=== PATIENT | male | born 1945 | race Two or more races ===

== ENCOUNTER 2017-04-15 08:20 | Inpatient (IN) | payer MEDICARE ==
[2017-04-15] MEDS ORDERED: Ondansetron INJ* 2 MG/ML VIAL IV PRN (08:24)
[2017-04-15] MEDS ORDERED: HYDROmorphone INJ* 2 MG/ML CARPUJECT SYRINGE IV PRN (08:24)
[2017-04-15 09:55] LABS: ABS Basophils 0 10^3/ul (0-0.2); ABS Eosinophils 0.2 10^3/ul (0-0.6); ABS Lymphocytes 0.8 10^3/ul (1.0-4.8); ABS Monocytes 0.7 10^3/ul (0-0.8); ABS Neutrophils 3.2 10^3/ul (1.5-7.7); ABS Nucleated RBC 0 10^3/ul; Eosinophil % 3.4 % (0-6); Hematocrit 46 % (42-52); Lymphocyte % 16.1 % (25-47); Mean Corpuscular HGB Conc 35 g/dl (31-36); Mean Corpuscular Hemoglobin 33 pg (27-31); Mean Corpuscular Volume 95 fL (80-94); Mean Platelet Volume 10 um3 (7.4-10.4); Nucleated Red Blood Cells % 0; Platelet Count 169 10^3/ul (150-450); Red Cell Distribution Width 14 % (10.5-15); White Blood Count 4.8 10^3/ul (3.5-10.8)
[2017-04-15 10:06] LABS: EGFR Non-African American 89.4 (>60)
--- NOTE | 2017-04-15 10:50 | PN ---
Progress Note - Progress Note Date of Service: 04/15/17 Note: H&P dictated Imp/Plan: Abdominal pain with jaundice and elevated Bilirubin CT scan today for further evaluation Plan for ERCP tomorrow
[2017-04-15] MEDS ORDERED: Iohexol 300* (CONTRAST) 10 ML SDV IV ONE (11:08)
--- NOTE | 2017-04-15 12:13 | RAD ---
INDICATION: Cholecystitis. Elevated bilirubin COMPARISON: Gallbladder sonogram April 13, 2017 TECHNIQUE: Axial source images were obtained from the hemidiaphragms to the symphysis pubis following administration of oral and intravenous contrast. 139 mL Omnipaque 300 was utilized. Coronal and sagittal reconstructed images were acquired. Lung bases: The lung bases are clear. Liver: The liver is normal in size. There is a 1.2 cm hypervascular lesion in the medial segment of the left hepatic lobe. There is no ductal dilatation.. Initially suggest ultrasonographic evaluation. There is mild hepatic steatosis. Gallbladder: There are numerous gallstones. There is no thickening of the gallbladder wall or pericholecystic fluid. There is no CT evidence of choledocholithiasis. Spleen: The spleen is normal in size. There are no masses. Pancreas: There is no focal pancreatic mass or ductal dilatation. Adrenal glands: There is no evidence of adrenal mass. Kidneys: The kidneys are normal in size and position. There are prompt nephrograms and there is prompt excretion bilaterally. There are bilateral parapelvic cysts. There is no evidence of nephrolithiasis. Adenopathy: There is no evidence of adenopathy by size criteria. Fluid collections: There are no free or localized fluid collections. Vessels:There are no significant atherosclerotic changes involving the aorta. There is no focal aneurysm. The iliac vessels are normal in caliber. There is no IVC filter. GI tract: There are no acute CT bowel findings. There is no obstruction. The stomach and small bowel appear normal. The lower GI tract is normal. The cecum, ileocecal valve, and terminal ileum appear normal. The appendix is visualized and appear normal. Pelvic organs: Anatomy not well evaluated due to bilateral hip arthroplasty and pelvic surgery. Bladder: Limited evaluation due to beam hardening artifact from postsurgical changes. Abdominal and pelvic soft tissues: The extraperitoneal abdominal and pelvic soft tissues appear normal.. Osseous structures: There are remote pelvic fractures with with peak fixation. There is bilateral hip arthroplasty. This produces significant beam hardening artifact. There is prior decompressive spinal surgery. Other: None IMPRESSION: CHOLELITHIASIS. NO DUCTAL DILATATION OR CT EVIDENCE OF CHOLEDOCHOLITHIASIS. POSTOPERATIVE CHANGE ABOUT THE LUMBAR SPINE, PELVIS, AND BOTH HIPS.
--- NOTE | 2017-04-15 18:04 | HP ---
ADMISSION HISTORY AND PHYSICAL: DATE OF ADMISSION: 04/15/17 PATIENT OF: Dr. Corey Guzman. * (DICTATED BY RYAN PIMENTEL) CHIEF COMPLAINT: Epigastric pain and gallstones. HISTORY OF PRESENT ILLNESS: Mr. Kent is a pleasant 71-year-old gentleman, who was seen at the [facility] office 2 days ago with complaints of epigastric pain. The patient was initially seen by his primary care physician, Dr. Carmona, in [place] for evaluation of gallstone that was noted on ultrasound. The patient reports back then, he noticed some jaundice and the ultrasound showed evidence of gallstones for which he was referred to our surgical office. He states several weeks of intermittent epigastric pain and right upper quadrant pain that radiates to the back and lasts on average 8 to 10 hours per episode. His pain eventually resolved; however, it started to happen again with no associated other symptoms. He denies any nausea, vomiting, changes in the color of stool or urine. He was seen at our surgical office and was noted to have elevated bilirubin on his laboratory workup for which decision was made for him to be directly admitted for further evaluation of possible choledocholithiasis and to arrange for ERCP. PAST MEDICAL HISTORY: Significant for chronic back pain, hypertension. PAST SURGICAL HISTORY: Significant for total hip replacements bilaterally as well as a left ankle fracture, status post ORIF of the ankle. He also had melanoma excised in the remote past. CURRENT MEDICATIONS: His medications at home include: 1. Cosopt eye drops, 1 drop in each eye once daily. 2. Gabapentin 400 mg p.o. b.i.d. 3. Lumigan ophthalmic solution 1 drop in both eyes once daily. 4. Multivitamin 1 tablet daily. 5. Omeprazole 20 mg p.o. daily. 6. Valsartan 80 mg p.o. daily. 7. Vitamin D supplement 1000 units p.o. daily. ALLERGIES: He has no known drug allergies. FAMILY HISTORY: He denies any family history of colorectal malignancies. SOCIAL HISTORY: The patient is . Lives with his . 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 He has never smoked and he occasionally consumes alcohol. REVIEW OF SYSTEMS: See HPI, otherwise negative. PHYSICAL EXAMINATION GENERAL: He is a pleasant, healthy-appearing, upper middle-aged gentleman in no acute distress or discomfort at the time of admission. VITAL SIGNS: His vitals revealed temperature of 98 degrees, pulse of 56, respirations of 16, blood pressure of 126/75, and O2 sat of 98% on room air. HEENT: Head is normocephalic, atraumatic. Sclerae slightly icteric. EOMs intact. PERRLA. Oropharynx is pink and moist. NECK: Supple. Trachea midline. No cervical adenopathy, thyromegaly, or JVD. LUNGS: Clear to auscultation bilaterally. HEART: Regular rate and rhythm. Normal S1 and S2 without rubs, murmurs, or gallops. BACK: With normal curvature. No CVA tenderness. ABDOMEN: Soft, round, nontender, and nondistended. There is no guarding, rigidity, or rebound tenderness noted. No hernias, masses, or hepatosplenomegaly. RECTAL: Exam deferred at this time. EXTREMITIES: Without cyanosis, clubbing, or edema. NEUROLOGIC: Grossly intact. LABORATORY WORKUP: CBC with white count of 4800, hemoglobin 16, hematocrit of 46, and platelets of 169. His chemistry showed sodium of 138, potassium of 4.3 , chloride 107, BUN of 14, creatinine of 0.8, glucose of 100. His LFTs with total bilirubin of 4.1 and alkaline phosphatase of 269. His lipase is 20. ACCESSORY DIAGNOSTIC DATA: The patient is scheduled for a CT scan of the abdomen and pelvis with contrast and those results are pending at this time. IMPRESSION: A 71-year-old gentleman with intermittent epigastric and right upper quadrant pain and known history of cholelithiasis with recent episodes of pain and jaundice. PLAN: The patient is scheduled for ERCP to be done tomorrow by Dr. Curran. We discussed with him the rationale, indications, risks, and benefits involved. Depending on his CT scan findings and the ERCP tomorrow, he will likely need a cholecystectomy to be done during this admission or sometime in the near future. He understands and wishes to proceed as outlined. RYAN PIMENTEL [id number]/[facility] #: [id number] [facility] RIVERSIDE HOSPITALCedrick
[2017-04-15] MEDS: Gabapentin CAP(*) 400 MG PO SCH (20:37)
--- NOTE | 2017-04-15 21:24 | CONS ---
GASTROENTEROLOGY CONSULT: DATE: 04/15/17 CONSULTING PHYSICIANS: Corey Guzman, Monse Carmona. 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 Exactly a week ago, he developed pain around midnight. It was in the upper abdomen, centrally located, went through to the back. There was some nausea. It tended to fade away over a few hours and then was gone for day. It came back severely Wednesday night, 04/11/17. Around 2 am on Wednesday morning, it disappeared, but there was a low level pain that continued until the middle of the day yesterday. His urine became very dark. There was no fever. Given the bilirubin rising from 4 to 9, he was admitted. He states he has similar pain to this about 25 or 30 years ago just once. Because of voice changes, he was placed on omeprazole 4 for 5 years ago and voice changes disappeared. In [place], ear, nose and throat doctor thought the gabapentin had spurred up reflux. PAST MEDICAL HISTORY: 1. Hypertension - started on BP meds a couple of years ago with no complications. 2. Chronic musculoskeletal pain - due to an accident several years ago. 3. History of deviated septum surgery. 4. History of tonsillectomy. 5. Back melanoma in 1986 - . 6. 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 REVIEW OF SYSTEMS: No history of TIA, stroke, seizure, peripheral neuropathy, asthma, TB, hemoptysis. There is no history of blood disorder. He has never had jaundice before. He does have some orthopedic metal objects implanted. He also has an anti-embolism device in place. PHYSICAL EXAMINATION: He is a robustly build, tall, middle-aged man, in no distress. HEENT: Exam shows minimal icterus. The eyes are symmetric. There is no adenopathy. His lungs are clear. Heart sounds are normal. The abdomen is mildly prominent, soft and nontender. Rectal: Deferred. Extremity: Show no edema. Neurologic is nonfocal with normal mentation. Cranial Nerves: Movement of all 4 extremities. LABORATORY DATA: Bilirubin 4.1, alkaline phosphatase down about [address] scan - coronal images show a fairly narrow common duct with the question of a beaded appearance. Ultrasound - sludge and small stones with a non-dilated duct. IMPRESSION: This 71-year-old man with gallbladder sludge and calin has a history early diagnostic for passing stones into the common duct. Mostly likely , he passed one successfully. An MRCP and further labs will help to find whether the stone may have bounced back into the duct or there are others in the common duct still needing to pass. He ultimately needs cholecystectomy. He may need an ERCP. This was discussed in detail with him assisted by diagram. [id number]/[facility] #: [id number] JUAN CARLOS
[2017-04-15] MEDS: PTO:Bimatoprost 0.01% OPHTH (NF) 2.5 ML BTL BOTH EYES SCH (23:36)
[2017-04-15] MEDS: PTO:Dorzolamide/Timolol OPTH (NF) 10 ML BOT BOTH EYES SCH (23:36)
[2017-04-16 06:37] LABS: EGFR Non-African American 91.9 (>60)
[2017-04-16] MEDS: PTO:Bimatoprost 0.01% OPHTH (NF) 2.5 ML BTL BOTH EYES SCH ×3 (08:32→19:33)
[2017-04-16] MEDS: Gabapentin CAP(*) 400 MG PO SCH ×2 (08:34→19:32)
[2017-04-16] MEDS: Omeprazole CAP* 20 MG PO SCH (08:34)
[2017-04-16] MEDS: Valsartan TAB* 80 MG PO SCH (08:34)
--- NOTE | 2017-04-16 09:08 | PN ---
Progress Note - Progress Note Date of Service: 04/16/17 Note: S: Wendel good yesterday. Today: feels a little "tight" in the upper abd, and a bit of nausea (no vomiting). Tolerated diet well yesterday. Had BM this a.m. O: Vital Signs - 8 hr 04/16/17 04/16/17 04/16/17 04:19 04:45 07:20 Temperature 97.9 F 98.2 F Pulse Rate 50 51 Respiratory 16 17 Rate Blood Pressure 112/67 135/80 (mmHg) O2 Sat by Pulse 95 95 96 Oximetry 04/16/17 08:34 Temperature Pulse Rate Respiratory 18 Rate Blood Pressure (mmHg) O2 Sat by Pulse Oximetry Intake and Output Last 24 Hours 04/14/17 04/15/17 04/16/17 04/17/17 06:59 06:59 06:59 06:59 Intake Total 3036 0 Output Total 2024 200 Balance 1011 -200 Weight 230 lb Intake: IV Fluids 1935 LR 1935 Oral 1100 0 Output: Urine 2024 200 Other: Date of Last Bowel 04/15/17 Movement Estimated Stool Amount Medium Gen: NAD Heart: reg Lungs: clear Abd: mildly distended; +BS; soft; no sig tenderness Lab: Laboratory Tests 04/16/17 05:56 Total Bilirubin 2.20 H D AST 49 H ALT 257 H Alkaline Phosphatase 215 H A: choledocholithais, with overall clinical improvement P: MRCP today, followed by ERCP if add'l CBD stones; tentatively whit for lap alize on Mon (d/c home between if clinically well?)
--- NOTE | 2017-04-16 11:10 | RAD ---
Indication: Elevated bilirubin. Axial T2 fat sat, coronal T2, 3-D MRCP images were obtained. The left and right hepatic ducts are otherwise unremarkable. The common bile duct and common hepatic ducts demonstrates no evidence of stenosis. There is filling defect in the gallbladder consistent with multiple gallstones. No evidence of common duct stone is noted. The pancreatic duct is within normal limits. In the left lobe of liver there appears to be a high signal lesion consistent with hemangioma and is appears to be ring-enhancing on the CT. IMPRESSION: Multiple filling defects in the gallbladder consistent with gallstones. No evidence of filling defect is noted in the common hepatic or common bile duct. There appears to be a left lobe hepatic hemangioma.
[2017-04-16] MEDS: PTO:Dorzolamide/Timolol OPTH (NF) 10 ML BOT BOTH EYES SCH ×2 (17:50→19:34)
[2017-04-17 05:29] LABS: ABS Basophils 0 10^3/ul (0-0.2); ABS Eosinophils 0.1 10^3/ul (0-0.6); ABS Lymphocytes 0.9 10^3/ul (1.0-4.8); ABS Monocytes 0.7 10^3/ul (0-0.8); ABS Neutrophils 3.4 10^3/ul (1.5-7.7); ABS Nucleated RBC 0 10^3/ul; Eosinophil % 2.7 % (0-6); Hematocrit 44 % (42-52); Mean Corpuscular HGB Conc 34 g/dl (31-36); Mean Corpuscular Hemoglobin 33 pg (27-31); Mean Corpuscular Volume 95 fL (80-94); Mean Platelet Volume 9 um3 (7.4-10.4); Nucleated Red Blood Cells % 0.1; Platelet Count 157 10^3/ul (150-450); Red Blood Count 4.63 10^6/ul (4.0-5.4); Red Cell Distribution Width 13 % (10.5-15); White Blood Count 5.2 10^3/ul (3.5-10.8)
[2017-04-17] MEDS: Omeprazole CAP* 20 MG PO SCH (08:03)
[2017-04-17] MEDS: Gabapentin CAP(*) 400 MG PO SCH ×2 (08:03→19:47)
[2017-04-17] MEDS: PTO:Bimatoprost 0.01% OPHTH (NF) 2.5 ML BTL BOTH EYES SCH ×2 (08:06→19:47)
[2017-04-17] MEDS: Valsartan TAB* 80 MG PO SCH (08:06)
[2017-04-17] MEDS: PTO:Dorzolamide/Timolol OPTH (NF) 10 ML BOT BOTH EYES SCH ×2 (08:07→19:47)
--- NOTE | 2017-04-17 09:10 | PN ---
Progress Note - Progress Note Date of Service: 04/17/17 SOAP: Subjective: Feels well today-no abdominal pain and has appetite Ambulating without difficulty Objective: Temp Pulse Resp BP Pulse Ox 97.6 F 50 18 131/83 96 04/17/17 07:47 04/17/17 07:47 04/17/17 08:17 04/17/17 07:47 04/17/17 07:47 Intake & Output 04/15/17 04/16/17 04/17/17 04/18/17 06:59 06:59 06:59 06:59 Intake Total 3036 2178 Output Total 2024 1824 Balance 1011 353 Weight 230 lb 230 lb Intake: IV Fluids 1935 1000 LR 1936 1000 IVPB 698 LR 698 Oral 1100 480 Output: Urine 2024 1824 Other: Estimated Void Medium Date of Last Bowel 04/15/17 Movement Estimated Stool Amount Medium # Voids 1 PEX: Comfortable Lungs are clear Abd is soft and non-distended. Bowel sounds are present. There is no tenderness Ext without edema Laboratory Results - last 24 hr 04/17/17 04/17/17 05:03 05:03 WBC 5.2 RBC 4.63 Hgb 15.0 Hct 44 MCV 95 H MCH 33 H MCHC 34 RDW 13 Plt Count 157 MPV 9 Neut % (Auto) 66.1 Lymph % (Auto) 18.0 L [place] % (Auto) 12.8 H Eos % (Auto) 2.7 Baso % (Auto) 0.4 Absolute Neuts (auto) 3.4 Absolute Lymphs (auto) 0.9 L Absolute Monos (auto) 0.7 Absolute Eos (auto) 0.1 Absolute Basos (auto) 0 Absolute Nucleated RBC 0 Nucleated RBC % 0.1 Total Bilirubin 2.50 H Direct Bilirubin 0.90 H Indirect Bilirubin 1.6 H AST 47 H ALT 210 H Alkaline Phosphatase 168 H Total Protein 6.0 L Albumin 3.9 Globulin 2.1 Albumin/Globulin Ratio 1.9 Assessment: Jaundice--presumed common duct stone that has passed. MRCP yesterday normal without evidence of bile duct stones. Bilirubin much improved although slightly up this morning, but higher indirect component. No pain Cholelithiasis-no signs of cholecystitis Plan: I discussed with Dr. Curran yesterday-we do not feel ERCP indicated at this time but I will wait for him to review labs this morning. Also discussed plan with patient and his . He is on OR schedule Wednesday for lap sai Will keep on clear liquids if no ERCP and observe in hospital.
[2017-04-18] MEDS: PTO:Bimatoprost 0.01% OPHTH (NF) 2.5 ML BTL BOTH EYES SCH ×2 (07:59→20:54)
[2017-04-18] MEDS: Omeprazole CAP* 20 MG PO SCH (08:20)
[2017-04-18] MEDS: Valsartan TAB* 80 MG PO SCH (08:20)
[2017-04-18] MEDS: Gabapentin CAP(*) 400 MG PO SCH ×2 (08:20→17:49)
--- NOTE | 2017-04-18 10:03 | PN ---
Progress Note - Progress Note Date of Service: 04/18/17 SOAP: Subjective: Doing well without pain and tolerating liquids Had a loose BM this morning. Ambulating in halls Objective: Temp Pulse Resp BP Pulse Ox 97.5 F 51 16 130/76 97 04/18/17 07:23 04/18/17 07:23 04/18/17 08:24 04/18/17 07:23 04/18/17 08:24 Intake & Output 04/16/17 04/17/17 04/18/17 04/19/17 06:59 06:59 06:59 06:59 Intake Total 3036 2178 3873 320 Output Total 2024 1825 3100 300 Balance 1011 353 773 20 Weight 230 lb 230 lb Intake: IV Fluids 1936 1000 983 LR 1936 1000 983 IVPB 698 LR 698 Oral 9511 839 1650 320 Output: Urine 2024 1824 3100 300 Other: Estimated Void Medium Date of Last Bowel 04/15/17 Movement Estimated Stool Amount Medium # Voids 1 PEX: Comfortable Lungs are clear Abd is soft and non-distended. There is no tenderness. Bowel sounds are present. Labs pending Assessment: Cholelithiasis with probable choledocholithiasis with probable passing of CBD stone HTN Plan: Plan lap choly tomorrow-discussed procedure with patient. Reviewed care yesterday with Dr. Curran. Check labs today
[2017-04-18] MEDS: Dorzolamide/Timolol OPTH (NF) 10 ML BOT BOTH EYES SCH ×2 (10:39→20:54)
--- NOTE | 2017-04-18 17:56 | RAD ---
INDICATION: Cholecystitis and elevated bilirubin COMPARISON: Most recent comparison chest x-rays dated December 11, 2008 TECHNIQUE: Single AP portable view of the chest was obtained. FINDINGS: Image quality is compromised due to the relative inferiority of a portable chest x-ray. The heart and mediastinum exhibit normal size and contour. The lungs are grossly clear. There is no evidence of a large pleural effusion. Visualized bones are normal for the patient's age. IMPRESSION: No radiographic evidence for acute cardiopulmonary abnormality on this portable chest x-ray.
--- NOTE | 2017-04-19 00:04 | CONS ---
CC: Dr. Guzman; Dr. Soto * CONSULTATION REPORT: DATE OF CONSULT: 04/18/17 REASON FOR MEDICAL CONSULT: Evaluation of comorbid medical conditions and perioperative risk stratification. HISTORY OF PRESENT ILLNESS: Mr. Kent is a 71-year-old male patient that presented in the outpatient setting to Dr. Guzman's office with complaints of abdominal discomfort, epigastric pain, was found to be jaundiced, ultimately was direct admitted for concerns of choledocholithiasis. MRCP was obtained. The patient's pain and LFTs improved. It is felt that he probably passed the stone on his own and it was felt that he was going to require a laparoscopic cholecystectomy, which the plan is to undergo today. Unfortunately though, an EKG was obtained today and there was concern for possible Q-waves in the anterior leads for possible old OH. In discussion with the patient, he says that he has not been having any chest pain that he can ever recall. He says that he does exercise about an hour and a half twice a week and he does do exercise bike for about 20 minutes after which he does not get shortness of breath or chest pain. He says he has not been having any chest pain here and he has no more abdominal pain. He says when he looks at himself in the mirror, he does not appear to be jaundiced. He denied having any recent fevers or chills. There has been no recent shortness of breath. There has been no vomiting since he has been here and he says he is feeling better. Because of his EKG changes, we were asked to evaluate in consult. PAST MEDICAL HISTORY: Significant for: 1. Hypertension. 2. Chronic back pain. 3. Melanoma. PAST SURGICAL HISTORY: He has had a bilateral total hip replacement. He has had a left ankle ORIF. He has had melanoma excision. He has had back surgeries , carpal tunnel surgery, and he has had rotator cuff repair. MEDICATIONS: Home meds include: 1. Valsartan 80 mcg daily. 2. Vitamin D 1000 units p.o. daily. 3. Omeprazole 20 mg daily. 4. Multivitamin 1 tablet daily. 5. Lumigan 1 drop both eyes b.i.d. 6. Gabapentin 400 mg p.o. b.i.d. 7. Cosopt 1 drop both eyes at bedtime. ALLERGIES TO MEDICATIONS: Include no known drug allergies. FAMILY HISTORY: His mother had a history of CVA. Father had heart disease in his 90s. SOCIAL HISTORY: He does not smoke, he does drink alcohol occasionally. Surrogate decision maker is his . REVIEW OF SYSTEMS: There is no documented fever. There is no significant weight change. There is no double vision. Denies having any ear discharge. There is no rhinorrhea, no sore throat, and no thyroid enlargement. Denied having any chest pain. There is no orthopnea, no nocturnal dyspnea. Again no dyspnea on exertion. No dysuria, no frequencies. There was abdominal pain prior to coming in; however, he has none now. No nausea, no vomiting, no dysuria, no frequency, no seizure, no loss of consciousness, no pruritus, no skin ulcerations. Review of 14 systems completed, all others negative. PHYSICAL EXAM: Vital Signs: Blood pressure 135/75, pulse 47, respirations 16, O2 sat 97%, and temperature 98.5. General: At this time, Mr. Kent is a 71- year-old male patient who appears to be well nourished and well developed. He is sitting in the hospital bed. He does not appear to be in any acute distress. HEENT: Head atraumatic and normocephalic. Eyes; EOMs intact. The sclerae now appears to be anicteric and not pale. Neck was supple. Throat: Oral mucosa appears to be moist. No oropharyngeal erythema. Heart sounds S1 and S2. Regular rate and rhythm. No murmurs, rubs, or gallops. Lungs: Clear to auscultation. No wheezes, rales, or rhonchi. Abdomen was soft, flat, and nontender. Bowel sounds were present. Extremities: Pulses were 2+ throughout. Moving all 4 extremities with 5/5 strength. Neurological: The patient is awake, alert and oriented x3. Tongue midline. Lamp Shade Assembler are equal. No gross focal deficits. The skin is intact. DIAGNOSTIC STUDIES/LAB DATA: Today WBC of 5.2, RBC of 4.63, hemoglobin 15.0, hematocrit of 44, and platelet count of 157,000. His total bili is 1.9, direct 0.7, indirect 1.2. AST 51, ALT 185, alk phos 166, again all trending down from when he was admitted. He did have an abdominal and pelvis CT obtained on admission. Impression: Cholelithiasis. No ductal dilatation or CT evidence of choledocholithiasis. Postoperative change about the lumbar spine, pelvis, and both hips. He did have an MRCP which showed multiple filling defects in the gallbladder consistent with gallstones. No evidence of filling defects is noted in the common hepatic or common bile duct. There appears to be a left lobe hepatic hemangioma. He had an EKG obtained today, the last one that he had was in 2008. Today's EKG does show a sinus bradycardia, rate of 51. He does have what appears to be old Q-wave in II, III, and aVF, but again they are subtle. Previous EKG does appear to be somewhat similar, particularly in the inferior leads this appears to be similar. Old medical records were reviewed. ASSESSMENT AND PLAN: Mr. Kent is a 71-year-old male patient. He comes in to our surgical services for abdominal pain, found to have choledocholithiasis, presumed to have passed on its own, now preparing to undergo a laparoscopic cholecystectomy tomorrow with Dr. Guzman. EKG was obtained, there are new changes noted in the anterior leads. We were asked to evaluate. Recommendations at this point are: 1. Choledocholithiasis. Again at this point, I defer the management to Dr. Guzman and his team, but in terms of his perioperative risk stratification and his EKG changes, the patient is not having any active cardiac symptoms. This could just simply be from lead placement. My plan would be to get a chest x-ray. He is able to walk up a flight of stairs and he is able to do 20 minutes of cardiac exercise at least twice a week with no chest pain and he has not had any chest pain or shortness of breath recently, so I think at this point he is medically optimized pending chest x-ray and we will try to get an old EKG from his primary when they open to see if this may be on his old EKGs, though we just do not have access to, but at this point, I do not think this should hold him up from surgery. 2. Hypertension. Continue meds prescribed. 3. Back pain. Continue his current medical regimen. 4. History of melanoma. Follow up with his primary. 5. DVT prophylaxis. Defer to the primary team. 6. Code status, full code. 7. Fluids, electrolytes, and nutrition. Defer to the primary team. TIME SPENT: On the consult 60 minutes, greater than half the time spent face-to - face with the patient obtaining my history and physical, other half of the time spent going over the plan of care with the patient, implementing the plan of care. I discussed the plan of care with my attending Dr. Castaneda, who is in agreement. TORSTEN PAIGE, ADAM [id number]/[facility] #: [id number] JUAN CARLOS
[2017-04-19] MEDS: Gabapentin CAP(*) 400 MG PO SCH ×2 (05:43→16:38)
[2017-04-19] MEDS: Valsartan TAB* 80 MG PO SCH (07:45)
[2017-04-19] MEDS: Omeprazole CAP* 20 MG PO SCH (07:45)
[2017-04-19] MEDS: Dorzolamide/Timolol OPTH (NF) 10 ML BOT BOTH EYES SCH ×3 (07:46→19:52)
--- NOTE | 2017-04-19 10:09 | PN ---
Progress Note - Progress Note Date of Service: 04/19/17 SOAP: Subjective: Doing well No abdominal pain Wants to eat Objective: Temp Pulse Resp BP Pulse Ox 98.4 F 52 16 145/93 97 04/19/17 07:34 04/19/17 07:34 04/19/17 07:58 04/19/17 07:34 04/19/17 07:34 Intake & Output 04/17/17 04/18/17 04/19/17 04/20/17 06:59 06:59 06:59 06:59 Intake Total 2178 3873 4485 Output Total 1825 3100 3400 Balance 132 099 3052 Weight 230 lb 230 lb Intake: IV Fluids 4753 572 9062 LR 4262 491 3888 IVPB 698 LR 698 Oral 480 2890 1565 Output: Urine 1825 3100 3400 Other: Estimated Void Medium Date of Last Bowel 04/18/17 Movement # Bowel Movements 2 Estimated Stool Amount Medium # Voids 1 PEX: Comfortable Lungs are clear Abd is soft and non-distended. No tenderness and bowel sounds are present and normoactive. Laboratory Results - last 24 hr 04/18/17 10:14 Total Bilirubin 1.90 H Direct Bilirubin 0.70 H Indirect Bilirubin 1.2 H AST 51 H ALT 185 H Alkaline Phosphatase 166 H Total Protein 6.1 L Albumin 4.0 Globulin 2.1 Albumin/Globulin Ratio 1.9 Assessment: Cholelithiasis-probable passed CBD stone and LFT's normalizing. MRCP with clear common bile duct. Plan: Laparoscopic cholecystectomy today--procedure discussed with patient and . Risks of, but not limited to, of bleeding, infection, abscess, possibility of open procedure, injury to retroperitoneal and peritoneal structures, common bile duct injury requiring surgical reconstruction, blood clots and pulmonary embolism were all explained. Recovery times and activity restrictions were discussed. Their questions were answered.
[2017-04-19] MEDS ORDERED: fentaNYL* 50 MCG/ML 2 ML VIAL (100 MCG VIAL) ONE ×3 (11:35→14:31)
[2017-04-19] MEDS ORDERED: Dexamethasone IV* 4 MG/ML 1 ML (4 MG) ONE (11:39)
[2017-04-19] MEDS ORDERED: Ondansetron INJ* 2 MG/ML VIAL ONE (11:39)
[2017-04-19] MEDS ORDERED: Propofol* 10 MG/ML 20 ML BTL IV PUSH ONE (11:39)
[2017-04-19] MEDS ORDERED: Atracurium* 10 MG/ML 10 ML VIAL ONE (11:40)
[2017-04-19] MEDS ORDERED: Atropine 1MG/ML INJ* 1 ML VIAL ONE (11:59)
[2017-04-19] MEDS ORDERED: Ketorolac INJ* 30 MG/ML 1 ML VIAL IV PRN (12:21)
[2017-04-19] MEDS ORDERED: DiMENhydriNATE IV* 50 MG/ML VIAL IV PUSH PRN (12:21)
[2017-04-19] MEDS ORDERED: Naloxone* 0.4 MG/ML 1 ML VIAL IV PRN (12:21)
[2017-04-19] MEDS ORDERED: Ketorolac INJ* 30 MG/ML 1 ML VIAL IV PUSH PRN (14:01)
--- NOTE | 2017-04-19 14:14 | OP ---
Operative Report - Blank - Operative Report Date of Operation: 04/19/17 Note: Pre-op: Chronic calculous cholecystitis Post-op: Same Procedure: Laparoscopic cholecystectomy Surgeon: Dr. Guzman Rodding Anode Worker: RYAN Lutz Anaesthesia: GETA EBL: Minimal Fluids: LR 2,000 cc Drains: AISLINN to self suction Catheter: None Specimen: Gallbladder Findings: See dictated op note
--- NOTE | 2017-04-19 14:21 | RAD ---
INDICATION: Intraoperative cholangiogram. COMPARISON: April 16, 2017 MR cholangiogram. April 15, 2017 CT. TECHNIQUE: 1 minute 19 seconds. fluoroscopy. FINDINGS: Spot images document a cholangiogram performed from the cystic duct. Opacification of the common bile duct, gallbladder, and part of the intrahepatic biliary tree. The gallbladder is packed with small stones. No filling defects evident within the cystic duct or common bile duct to indicate a ductal stone. Negative for biliary dilatation. IMPRESSION: Procedural fluoroscopy. CPT II Codes: 6045F
[2017-04-19] MEDS ORDERED: Ketorolac INJ* 30 MG/ML 1 ML VIAL ONE (14:31)
[2017-04-19] MEDS: fentaNYL* 50 MCG/ML 2 ML VIAL (100 MCG VIAL) IV PRN ×2 (14:32→14:46)
[2017-04-19] MEDS ORDERED: Piperacillin/Tazobac ADVAN(*) 3.375 GM in NS 0.9% 100 ML* 100 ML IVPB ONE (15:00)
[2017-04-19] MEDS: NS 0.9% 1000 ML* 1,000 ML IV SCH (16:37)
[2017-04-19] MEDS: oxyCODONE/Acetamin 5/325 MG* TAB PO PRN ×2 (16:38→20:54)
--- NOTE | 2017-04-19 17:20 | PN ---
Subjective Date of Service: 04/19/17 Interval History: Pt examined today at the bedside. Pt states that he is feeling well today. States he has so abd pain at incision. Denies chest pain and denies sob. Denies nausea and denies vomiting. ROS-denies fever, denies chills, denies chest pain, denies nausea and denies vomiting, denies lightheadedness, denies loc, denies sob, admits to abd pain post-op but tolerable, review of 11 systems completed all others negative, Objective Active Medications: Bimatoprost (Lumigan 0.01% Ophth (Nf)) 1 drop BOTH EYES BEDTIME [facility] Last Admin: 04/18/17 20:54 Dose: 1 drop Dorzolamide/Timolol (Cosopt (Nf)) 1 drop BOTH EYES BID [facility] Last Admin: 04/19/17 07:46 Dose: 1 drop Gabapentin (Neurontin Cap(*)) 400 mg PO 0600,1800 [facility] Last Admin: 04/19/17 16:38 Dose: 400 mg Hydromorphone HCl (Dilaudid Inj*) 0.5 mg IV Q1H PRN PRN Reason: Pain - severe Sodium Chloride (Ns 0.9% 1000 Ml*) 1,000 mls @ 125 mls/hr IV PER RATE [facility] Last Admin: 04/19/17 16:37 Dose: 125 mls/hr Piperacillin Sod/Tazobactam (Sod 3.375 gm/ Sodium Chloride) 100 mls @ 25 mls/ hr IVPB ONCE ONE Stop: 04/19/17 18:59 Last Admin: 04/19/17 16:39 Dose: 25 mls/hr Piperacillin Sod/Tazobactam (Sod 13.5 gm/ Sodium Chloride) 500 mls @ 20.833 mls /hr IVPB Q24H [facility] Ketorolac Tromethamine (Toradol Inj*) 30 mg IV PUSH Q6H PRN PRN Reason: PAIN Naloxone HCl (Narcan*) 0.08 mg IV Q2M PRN PRN Reason: severe induced resp depression Stop: 04/20/17 12:20 Omeprazole (Prilosec Cap*) 20 mg PO DAILY [facility] Last Admin: 04/19/17 07:45 Dose: 20 mg Ondansetron HCl (Zofran Inj*) 4 mg IV Q4H PRN PRN Reason: NAUSEA/VOMITING Oxycodone/Acetaminophen (Percocet 5/325 Tab*) 1 tab PO Q4H PRN PRN Reason: PAIN Last Admin: 04/19/17 16:38 Dose: 1 tab Valsartan (Diovan Tab*) 80 mg PO DAILY [facility] Last Admin: 04/19/17 07:45 Dose: 80 mg Vital Signs - 8 hr 04/19/17 04/19/17 04/19/17 14:05 14:10 14:15 Temperature 96.6 F Pulse Rate 85 88 77 Respiratory 16 12 12 Rate Blood Pressure 123/76 134/91 137/91 (mmHg) O2 Sat by Pulse 92 93 96 Oximetry 04/19/17 04/19/17 04/19/17 14:30 14:32 14:45 Temperature Pulse Rate 63 64 Respiratory 14 15 12 Rate Blood Pressure 130/101 159/102 (mmHg) O2 Sat by Pulse 96 97 Oximetry 04/19/17 04/19/17 04/19/17 14:46 15:00 15:01 Temperature Pulse Rate 53 Respiratory 12 12 Rate Blood Pressure 155/91 (mmHg) O2 Sat by Pulse 98 97 Oximetry 04/19/17 04/19/17 04/19/17 15:15 15:30 15:45 Temperature 97.0 F Pulse Rate 50 60 56 Respiratory 12 16 12 Rate Blood Pressure 152/96 156/79 141/82 (mmHg) O2 Sat by Pulse 98 100 97 Oximetry 04/19/17 04/19/17 16:00 16:38 Temperature Pulse Rate 60 Respiratory 14 16 Rate Blood Pressure 149/82 (mmHg) O2 Sat by Pulse 98 Oximetry Oxygen Devices in Use Now: None Appearance: 71 y/o male patient sitting in bed NAD, Eyes: No Scleral Icterus Ears/Nose/Mouth/Throat: NL Teeth, Lips, Gums Neck: NL Appearance and Movements; NL JVP Respiratory: Symmetrical Chest Expansion and Respiratory Effort, Clear to Auscultation Cardiovascular: NL Sounds; No Murmurs; No JVD Abdominal: - - hypoactive bowel sounds, abd soft, tenderness at incision Extremities: No Edema Skin: No Rash or Ulcers Neurological: Alert and Oriented x 3 Lines/Tubes/Other Access: Clean, Dry and Intact Peripheral IV Result Diagrams: 04/17/17 05:03 04/16/17 05:56 Assess/Plan/Problems-Billing Assessment: 71 y/o male patient presenting to surgical services with complaints of abd pain and choleliathisis, - Patient Problems (1) Choledocholithiasis Current Visit: Yes Status: Acute Priority: High Comment: POD s/p lap alize , management per surgery (2) No acute ischemic changes on electrocardiogram Current Visit: Yes Status: Acute Priority: High Comment: 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, will need, outpatient follow up with pcp, no chest pain currently , (3) HTN (hypertension) Current Visit: Yes Status: Acute Priority: High Comment: continue diovan, (4) Melanoma Current Visit: Yes Status: Acute Priority: High Comment: follow with pcp (5) DVT prophylaxis Current Visit: Yes Status: Acute Priority: High Comment: per general surgery (6) FEN Current Visit: Yes Status: Acute Priority: High Comment: per surgery (7) Full code status Current Visit: Yes Status: Acute Priority: High Status and Disposition: Medicine will sign off at this point, EKG show old infarct, no acute chest pain , will need further follow up with PCP, dispo per surgery
[2017-04-19] MEDS: PTO:Bimatoprost 0.01% OPHTH (NF) 2.5 ML BTL BOTH EYES SCH ×2 (19:50→19:52)
[2017-04-19] MEDS ORDERED: Piperacillin/Tazobactam 13.5 GM IV 24 hour continuous infusion IVPB SCH ×2 (20:00)
[2017-04-20] MEDS: NS 0.9% 1000 ML* 1,000 ML IV SCH (00:47)
[2017-04-20] MEDS: Gabapentin CAP(*) 400 MG PO SCH (05:28)
[2017-04-20] MEDS: Dorzolamide/Timolol OPTH (NF) 10 ML BOT BOTH EYES SCH ×2 (05:29→09:22)
--- NOTE | 2017-04-20 08:46 | PN ---
Progress Note - Progress Note Date of Service: 04/20/17 SOAP: Subjective: Doing well-minimal pain Tolerating po Ambulating Objective: Temp Pulse Resp BP Pulse Ox 98.6 F 56 18 112/54 95 04/20/17 07:38 04/20/17 07:38 04/20/17 07:38 04/20/17 07:38 04/20/17 07:38 Intake & Output 04/18/17 04/19/17 04/20/17 04/21/17 06:59 06:59 06:59 06:59 Intake Total 3873 4485 4220 Output Total 3100 3400 2090 600 Balance 773 1085 2130 -600 Weight 230 lb Intake: IV Fluids 983 2920 2480 LR 983 2920 1450 NS (0.9%) 980 NS 50ML, Cefazolin 2G 50 Oral 2890 1565 1740 Output: AISLINN #1 90 Urine 3100 3400 2000 600 Other: Date of Last Bowel 04/18/17 Movement # Bowel Movements 2 Estimated Stool Amount Medium PEX: Comfortable Lungs are clear Abd is soft and slightly distended. Bowel sounds are present. Incision dressing intact. AISLINN in place --serosanguinous drainage noted Ext without edema Assessment: POD# 1 s/p lap choly--acute calculous cholecystitis Plan: D/C home D/C drain today 5 days of oral Augmentin-[facility] in [place] Low fat diet Follow up in office next week.
[2017-04-20] MEDS: Omeprazole CAP* 20 MG PO SCH (10:06)
[2017-04-20] MEDS: oxyCODONE/Acetamin 5/325 MG* TAB PO PRN (10:06)
[2017-04-20] MEDS: Valsartan TAB* 80 MG PO SCH (10:06)
--- NOTE | 2017-04-20 10:38 | PN ---
Progress Note - Progress Note Date of Service: 04/20/17 Note: Dr. Guzman's note reviewed. AISLINN drain d/c'ed Discharge instructions reviewed with patient Home on PO Augmentin x5 days F/U in office next week.
--- NOTE | 2017-04-20 12:24 | OP ---
DATE OF OPERATION: 04/19/17 - ROOM #339 DATE OF : 49 SURGEON: Corey Guzman MD. [employer] GENER[employer] SUPERVISOR: RYAN Ordaz. ANESTHESIOLOGIST: Dr. Duenas. ANESTHESIA: General with local. PRE-OP DIAGNOSIS: Cholelithiasis. POST-OP DIAGNOSES: 1. Cholelithiasis. 2. Acute and chronic calculous cholecystitis. OPERATIVE PROCEDURES: Laparoscopic cholecystectomy with cholangiogram. SPECIMENS: Gallbladder with retained gallstones. WOULD CLASSIFICATION: 3. DRAINS: A #10 AISLINN drain in the right upper quadrant. COMPLICATIONS: None. FINDINGS: The patient had acute and chronic calculous cholecystitis. The cholangiogram appeared to be unremarkable for filling defect or ductal dilation. BRIEF HISTORY: Mr. Damaso Kent is a 71-year-old gentleman who is admitted to the hospital with 2 weeks of intermittent epigastric abdominal pain. He is noted to have a bilirubin of almost 9, which subsequently trended down after admission. An MRCP however, showed no evidence of ductal dilatation or common bile duct stones and his laboratory values have improved and in his abdomen his symptoms have also resolved. He is now to undergo an elective cholecystectomy. DESCRIPTION OF PROCEDURE: Written informed consent was obtained, the abdomen was marked with indelible ink, and preoperative antibiotics were administered. The patient was taken to the operating room, placed in the supine position. Sequential compression devices and warming blanket were applied. General anesthesia was administered and the abdomen was prepped and draped in the usual sterile fashion. Time-out verification was completed. A small transverse incision was made just above the umbilicus at the midline and the peritoneal cavity was entered under direct vision. A 12-mm blunt port was inserted and the abdomen was insufflated to 15 mmHg. An 11-mm epigastric port was placed and two 5-mm ports were placed in the right upper quadrant of the abdomen. The gallbladder was identified. It was thickened and whitish in color, but it was not particularly distended. We were able to grasp this and elevate it above the liver bed. The liver appeared to be somewhat fatty, but otherwise appeared to be unremarkable. There was some omental adhesions to the gallbladder, which were taken down. It was obvious that the gallbladder did have multiple stones and made it difficult to grasp at times throughout the case. We were able to work our way down to the infundibulum and it was obvious that there was some chronic and acute inflammation. There was thickened peritoneum along the medial and lateral aspect as well as down into the portal area. With tedious dissection through some edematous tissue, I was able to identify the cystic duct as it entered the gallbladder and subsequently the cystic artery. The cystic artery was then clipped at this point, and divided high up on the gallbladder. The cystic duct appeared to be somewhat larger in caliber than I expected. We continued to follow this down but it did not particularly taper and in addition I took a significant portion of the inferior part of the gallbladder through the inflamed tissue off the liver bed using the critical view technique to assure myself of this structure. In light of the fact that he had had pre-op imaging that showed no ductal dilation, I did perform a cholangiogram through the cystic duct. This showed the catheter to be in the cystic duct and there was free flow of contrast into the duodenum with no filling defect in the common or hepatic duct. Due to the caliber of the cystic duct, I divided this with an EndoGIA martin load of 30 mm staple without difficulty. The gallbladder was then removed from the liver bed using cautery. This was challenging as the posterior wall was quite adherent to the liver and I did enter the gallbladder at several points and so there was some spillage of very small stones and sludge, but I was able to aspirate the majority of these stones and we subsequently irrigated thoroughly at the end of the case. When the gallbladder was completely removed from the liver bed, it was placed in an Endo Catch bag. The right upper quadrant was irrigated thoroughly with almost 2 L of saline until clear. In light of the fact that we had spilled some bile, I did place a #10 AISLINN drain in the right upper quadrant, this was exited through the abdominal wall at the right lateral port site. The gallbladder was then removed from the umbilical incision. All ports were then removed under direct vision and hemostasis was assured. The umbilical fascia was closed with interrupted 0 Polysorb suture. The skin at all 3 incisions was approximated with subcuticular 4-0 Monocryl suture. Steri-Strips were applied. The patient tolerated the procedure well, was taken to the recovery room in stable condition. [id number]/[facility] #: [id number] [facility]ITAL[facility]
[2017-04-20 12:33] VITALS: BP 132/65
--- NOTE | 2017-04-20 22:09 | DS ---
CC: Baron Curran MD; Monse Carmona MD, Internal Medicine, [place] * DISCHARGE SUMMARY: DATE OF ADMISSION: 04/15/17 DATE OF DISCHARGE: 04/20/17 ADMISSION DIAGNOSES: 1. Chronic cholecystitis with cholelithiasis. 2. Choledocholithiasis. 3. Jaundice with elevated LFTs. DISCHARGE DIAGNOSES: 1. Chronic cholecystitis with cholelithiasis. 2. Choledocholithiasis. 3. Jaundice with elevated LFTs. ADMITTING PHYSICIAN: Corey Guzman MD * (DICTATED BY RYAN PIMENTEL) CONSULTATION: Baron Curran MD PROCEDURE: Laparoscopic cholecystectomy on 04/19/17. HISTORY OF PRESENT ILLNESS: Mr. Kent is a pleasant 71-year-old gentleman who was seen last week at [facility] office with complaints of 2-day history of worsening epigastric pain. The patient was initially seen by his primary care physician, Dr. Carmona in [place] for evaluation of gallstones that was noted on ultrasound. Back then, he reports noticing some jaundice with ultrasound showing evidence of choledocholithiasis for which he was referred to our office. He described intermittent episodes of epigastric pain on and off for the past year or so, but last episode he had 2 days ago was definitely the worst. His pain eventually resolved prior to admission; however, he continues to have elevated LFTs with total bilirubin reaching up to 9.1 value. He denied any changes in the color of stool or urine. He was directly admitted under surgical services for further evaluation and to discuss possible gallbladder surgery. HOSPITAL COURSE: The patient was admitted on 04/15/17. CT scan and laboratory workup were ordered that showed evidence of cholelithiasis, but without ductal dilatation. His total bilirubin actually trended down, was value of 4 on admission day and value of 2 on the following day. GI consult was obtained with Dr. Curran and MRCP was ordered, revealed no evidence of ductal dilatation or choledocholithiasis at that time. The patient was found not to be a candidate for ERCP, so he was kept for IV antibiotics and eventually was taken to the operating room on Wednesday. He underwent a laparoscopic cholecystectomy on 04/19/17 that was noted to have chronic inflammation as well as some ductal dilatation of the cystic duct. An intraoperative cholangiogram was done that revealed patent duct at that time. The patient was kept overnight for evaluation. He was covered prophylactically with Zosyn 3 times daily. After surgery, he started on clear liquid diet that he tolerated well and eventually advanced to low fat diet on the following day. He was ambulatory , out of bed and in stable condition. His abdominal exam the following morning was essentially unremarkable. His AISLINN drain was discontinued prior to his discharge to home and he will be discharged to home later this morning on oral antibiotics for the following 5 days. DISCHARGE MEDICATIONS: His discharge medications include; 1. Augmentin 875 mg p.o. b.i.d. for 5 days. 2. Cosopt eyedrops once daily as prescribed. 3. Gabapentin 400 mg p.o. b.i.d. 4. Lumigan ophthalmic drops 1 drop in both eyes as prescribed. 5. Multivitamin 1 tablet daily. 6. Omeprazole 20 mg daily. 7. Percocet 1 to 2 tablets q.6 hours as needed for pain. 8. Valsartan 80 mg p.o. daily. 9. Vitamin D tablets 1000 units p.o. daily. PROBLEM LIST: 1. Choledocholithiasis. 2. Jaundice. 3. Chronic cholecystitis, status post laparoscopic cholecystectomy with intraoperative cholangiogram on 04/19/17. RYAN PIMENTEL [id number]/[facility] #: [id number] MTDD
== END 2017-04-20 13:10 | disposition home or self-care (01) | DRG 418 ==
LOC: SSU 08:40
PROVIDERS: ADMIT Nurse Practitioner Family; ATTEND Surgery
PROC: BF10YZZ Fluoroscopy of Bile Ducts using Other Contrast (ICD-10-PCS; 2017-04-19)
PROC: 0FT44ZZ Resection of Gallbladder, Percutaneous Endoscopic Approach (ICD-10-PCS; principal; 2017-04-19 11:45)
DX: K80.66 Calculus of gallbladder and bile duct with acute and chronic cholecystitis without obstruction (principal); R17 Unspecified jaundice; I10 Essential (primary) hypertension; M54.9 Dorsalgia, unspecified; Z96.643 Presence of artificial hip joint, bilateral; R00.1 Bradycardia, unspecified; Z85.820 Personal history of malignant melanoma of skin; Z79.899 Other long term (current) drug therapy
CPT/HCPCS: 36415; 71045; 74177; 74181; 74300; 76376; 80053; 80076; 83690; 85025; 88304; 93005; 94760; A9270-GY; J0461; J1100; J1885; J2405; J2543; J2704; J3010; Q9967